=== PATIENT | male | born 1980 | race African-American/Black ===

== ENCOUNTER 2018-10-11 19:34 | Inpatient (IN) ==
[2018-10-11 21:10] LABS: Basophils % 0.2 % (0.0-0.8); Eosinophils % 0.1 % (0.00-10.9); Hematocrit 29.5 VOL% (42.0-52.0); Hemoglobin 9.2 GM/DL (14.0-18.0); Immature Granulocytes % 0.6 %; Lymphocytes % 11.2 % (21.2-54.2); Mean Corpuscular HGB Conc 31.2 GM/DL (32-36); Mean Corpuscular Hemoglobin 29 PG (27-34); Mean Corpuscular Volume 92.8 FL (87-102); Mean Platelet Volume 8.9 FL (9.6-12.0); Monocytes # 1.6 10*3/uL (0.11-0.8); Monocytes % 8.7 % (1.7-12.7); Neutrophils # 14.1 10*3/uL (1.4-7.4); Neutrophils % 79.2 % (38.7-73.9); Platelet Count 515 T/CUMM (130-400); Red Blood Count 3.18 MC/CUMM (3.8-5.5); Red Cell Distribution Width 15.3 % (9.3-17.3); White Blood Count 17.8 T/CUMM (4-12)
[2018-10-11 21:32] LABS: Alanine Aminotransferase 18 U/L (16-61); Albumin 2.6 G/DL (3.4-5.0); Alkaline Phosphatase 53 U/L (45-117); Aspartate Amino Transferase 7 U/L (0-37); Bilirubin,Total < 0.39 MG/DL (0.2-1.0); Blood Urea Nitrogen 14 MG/DL (7-18); Calcium 9.2 MG/DL (8.5-10.1); Glucose 109 MG/DL (74-106); Osmolality,Calculated 274.8 MOS/KG (273-304); Potassium 3.9 MMOL/L (3.5-5.1); Sodium 137 MMOL/L (136-145); Total Protein 8.5 G/DL (6.4-8.3); Troponin I < 0.015 NG/ML (0.00-0.045)
[2018-10-11] MEDS ORDERED: LEVOFLOXACIN INJ 500 MG in PREMIX 1 EACH IV STA (21:36)
[2018-10-11] MEDS ORDERED: SODIUM CHLORIDE 0.9% 1,000 ML IV STA (21:47)
[2018-10-11] MEDS ORDERED: ONDANSETRON 4 MG/2 ML VIAL IV PRN (22:07)
[2018-10-11] MEDS ORDERED: ALBUTEROL/IPRATROPIUM 3 ML NEB RESP TX STA (23:54)
[2018-10-12] MEDS: cefTRIAXone 1,000 MG in SYRINGE 1 EACH IV SCH ×2 (00:33→22:32)
[2018-10-12] MEDS: AZITHROMYCIN INJ 500 MG in SODIUM CHLORIDE 0.9% 250 ML IV SCH ×2 (00:33→22:58)
[2018-10-12 01:25] LABS: Basophils % 0.1 % (0.0-0.8); Hematocrit 25.5 VOL% (42.0-52.0); Hemoglobin 7.8 GM/DL (14.0-18.0); Immature Granulocytes % 0.5 %; Immature Granulocytes Absolute 0.09 #; Lymphocytes # 2.1 10*3/uL (1.4-4.0); Lymphocytes % 11.8 % (21.2-54.2); Mean Corpuscular HGB Conc 30.6 GM/DL (32-36); Mean Corpuscular Hemoglobin 28 PG (27-34); Mean Corpuscular Volume 92.7 FL (87-102); Mean Platelet Volume 9.5 FL (9.6-12.0); Monocytes # 1.4 10*3/uL (0.11-0.8); Monocytes % 8.1 % (1.7-12.7); Neutrophils # 14.1 10*3/uL (1.4-7.4); Neutrophils % 79.5 % (38.7-73.9); Platelet Count 450 T/CUMM (130-400); Red Blood Count 2.75 MC/CUMM (3.8-5.5); Red Cell Distribution Width 15.3 % (9.3-17.3); White Blood Count 17.7 T/CUMM (4-12)
[2018-10-12 01:55] LABS: Albumin 2.4 G/DL (3.4-5.0); Bilirubin,Total 0.8 MG/DL (0.2-1.0); Calcium 8.5 MG/DL (8.5-10.1); Osmolality,Calculated 277.5 MOS/KG (273-304); Potassium 3.8 MMOL/L (3.5-5.1); Total Protein 7.4 G/DL (6.4-8.3)
[2018-10-12] MEDS: BENZTROPINE 0.5 MG TABLET PO SCH ×2 (08:45→22:19)
[2018-10-12] MEDS: PANTOPRAZOLE 40 MG TABLET PO SCH (08:45)
[2018-10-12] MEDS: ENOXAPARIN 40 MG/0.4 ML SYRINGE SUBCUT SCH (08:45)
[2018-10-12] MEDS: amLODIPine 5 MG TABLET PO SCH (08:45)
[2018-10-12] MEDS ORDERED: risperiDONE 1 MG TABLET PO SCH (09:00)
[2018-10-12] MEDS ORDERED: CLOZAPINE 200 MG PO SCH (09:00)
[2018-10-12] MEDS: TIMOLOL 0.5% OPH SOLN 5 ML BOTTLE BOTH EYES SCH ×2 (10:30→22:19)
[2018-10-12] MEDS ORDERED: ONDANSETRON ODT 4 MG TABLET PO ONE (14:45)
[2018-10-12] MEDS: ACETAMINOPHEN 325 MG TABLET PO PRN (22:19)
[2018-10-12] MEDS: DIVALPROEX ER 500 MG TABLET PO SCH (22:19)
[2018-10-13 04:28] LABS: Basophils % 0.2 % (0.0-0.8); Eosinophils # 0.1 10*3/uL (0.0-0.87); Eosinophils % 0.4 % (0.00-10.9); Hematocrit 27.1 VOL% (42.0-52.0); Hemoglobin 8.2 GM/DL (14.0-18.0); Immature Granulocytes % 0.6 %; Immature Granulocytes Absolute 0.07 #; Lymphocytes # 3.1 10*3/uL (1.4-4.0); Lymphocytes % 25.2 % (21.2-54.2); Mean Corpuscular HGB Conc 30.3 GM/DL (32-36); Mean Corpuscular Hemoglobin 28 PG (27-34); Mean Corpuscular Volume 93.8 FL (87-102); Mean Platelet Volume 9.5 FL (9.6-12.0); Monocytes # 0.8 10*3/uL (0.11-0.8); Monocytes % 6.8 % (1.7-12.7); Neutrophils # 8.3 10*3/uL (1.4-7.4); Neutrophils % 66.8 % (38.7-73.9); Platelet Count 537 T/CUMM (130-400); Red Blood Count 2.89 MC/CUMM (3.8-5.5); Red Cell Distribution Width 15.3 % (9.3-17.3); White Blood Count 12.3 T/CUMM (4-12)
[2018-10-13 04:56] LABS: Albumin 2.3 G/DL (3.4-5.0); Bilirubin,Total 0.6 MG/DL (0.2-1.0); Osmolality,Calculated 279.3 MOS/KG (273-304); Potassium 4.1 MMOL/L (3.5-5.1); Total Protein 7.5 G/DL (6.4-8.3)
[2018-10-13 04:58] LABS: % Iron Saturation 15.9 % (18-50); Ferritin 706.4 ng/ml (26-388)
[2018-10-13 05:07] LABS: Folate 5.1 NG/ML (5.4-24.0)
[2018-10-13 08:15] LABS: Hypochromasia 1+; Lymphocytes 27 % (20-55); Segmented Neutrophils 67 % (50-85); Total Cells Counted 100
[2018-10-13 08:16] LABS: Microcytosis Slight; Platelet Estimate Increased
[2018-10-13] MEDS: BREXPIPRAZOLE 4 MG PO SCH (08:20)
[2018-10-13] MEDS: BENZTROPINE 0.5 MG TABLET PO SCH ×2 (08:20→21:10)
[2018-10-13] MEDS: amLODIPine 5 MG TABLET PO SCH (08:20)
[2018-10-13] MEDS: PANTOPRAZOLE 40 MG TABLET PO SCH (08:20)
[2018-10-13] MEDS: risperiDONE 1 MG TABLET PO SCH ×2 (08:20→21:10)
[2018-10-13] MEDS: TIMOLOL 0.5% OPH SOLN 5 ML BOTTLE BOTH EYES SCH ×2 (08:22→21:10)
[2018-10-13] MEDS ORDERED: FERROUS SULFATE 325 MG TABLET PO SCH (09:00)
[2018-10-13] MEDS: ENOXAPARIN 40 MG/0.4 ML SYRINGE SUBCUT SCH (09:50)
[2018-10-13 16:19] LABS: Apearance,Urine CLEAR (Clear); Bacteria,Urine Occasional /HPF (Few); Bilirubin,Urine Negative (Negative); Blood, Urine Negative (Negative); Glucose,Urine (UA) Negative (Negative); Ketones,Urine Negative (Negative); Nitrite,Urine Negative (Negative); Protein,Urine Negative; RBC,Urine <1 /HPF (0-4); Urine Color Straw (Yellow); Urine Specific Gravity 1.004 (1.001-1.035); Urine Urobilinogen < 2.0 EU/DL (0.2-1.0); WBC,Urine 1 /HPF (0-6)
[2018-10-13] MEDS: FOLIC ACID 1 MG TABLET PO SCH (21:10)
[2018-10-13] MEDS: ACETAMINOPHEN 325 MG TABLET PO PRN (21:10)
[2018-10-13] MEDS: DIVALPROEX ER 500 MG TABLET PO SCH (21:10)
[2018-10-13] MEDS: cefTRIAXone 1,000 MG in SYRINGE 1 EACH IV SCH (22:53)
[2018-10-13] MEDS: AZITHROMYCIN INJ 500 MG in SODIUM CHLORIDE 0.9% 250 ML IV SCH (22:53)
[2018-10-14] MEDS: amLODIPine 5 MG TABLET PO SCH (09:27)
[2018-10-14] MEDS: risperiDONE 1 MG TABLET PO SCH ×2 (09:27→21:28)
[2018-10-14] MEDS: PANTOPRAZOLE 40 MG TABLET PO SCH (09:27)
[2018-10-14] MEDS: TIMOLOL 0.5% OPH SOLN 5 ML BOTTLE BOTH EYES SCH ×3 (09:27→21:32)
[2018-10-14] MEDS: BENZTROPINE 0.5 MG TABLET PO SCH ×2 (09:27→21:28)
[2018-10-14] MEDS: BREXPIPRAZOLE 4 MG PO SCH (09:28)
[2018-10-14] MEDS: ENOXAPARIN 40 MG/0.4 ML SYRINGE SUBCUT SCH (09:30)
[2018-10-14 10:48] LABS: Lymphocytes,Pleural Fluid 36 %; Monocytes,Pleural Fluid 5 %; Neutrophils,Pleural Fluid 59 %; RBC,Pleural Fluid 422 T/CUMM
[2018-10-14] MEDS: FERROUS SULFATE 325 MG TABLET PO SCH ×2 (15:03→21:28)
[2018-10-14] MEDS: DIVALPROEX ER 500 MG TABLET PO SCH (21:27)
[2018-10-14] MEDS: FOLIC ACID 1 MG TABLET PO SCH (21:28)
[2018-10-14] MEDS: AZITHROMYCIN INJ 500 MG in SODIUM CHLORIDE 0.9% 250 ML IV SCH (22:27)
[2018-10-14] MEDS: cefTRIAXone 1,000 MG in SYRINGE 1 EACH IV SCH (22:32)
[2018-10-15 05:17] LABS: Basophils % 0.3 % (0.0-0.8); Eosinophils # 0.1 10*3/uL (0.0-0.87); Eosinophils % 0.7 % (0.00-10.9); Hematocrit 25.8 VOL% (42.0-52.0); Hemoglobin 7.7 GM/DL (14.0-18.0); Immature Granulocytes % 0.5 %; Immature Granulocytes Absolute 0.05 #; Lymphocytes # 2.8 10*3/uL (1.4-4.0); Lymphocytes % 26.5 % (21.2-54.2); Mean Corpuscular HGB Conc 29.8 GM/DL (32-36); Mean Corpuscular Hemoglobin 28 PG (27-34); Mean Corpuscular Volume 93.8 FL (87-102); Mean Platelet Volume 9.1 FL (9.6-12.0); Monocytes # 0.6 10*3/uL (0.11-0.8); Monocytes % 5.6 % (1.7-12.7); Neutrophils % 66.4 % (38.7-73.9); Platelet Count 514 T/CUMM (130-400); Red Blood Count 2.75 MC/CUMM (3.8-5.5); Red Cell Distribution Width 15.3 % (9.3-17.3); White Blood Count 10.5 T/CUMM (4-12)
[2018-10-15 05:46] LABS: Calcium 9.1 MG/DL (8.5-10.1); Osmolality,Calculated 282.1 MOS/KG (273-304); Potassium 4.2 MMOL/L (3.5-5.1)
[2018-10-15] MEDS: risperiDONE 1 MG TABLET PO SCH ×2 (09:40→21:13)
[2018-10-15] MEDS: PANTOPRAZOLE 40 MG TABLET PO SCH (09:40)
[2018-10-15] MEDS: BENZTROPINE 0.5 MG TABLET PO SCH ×2 (09:40→21:14)
[2018-10-15] MEDS: BREXPIPRAZOLE 4 MG PO SCH (09:40)
[2018-10-15] MEDS: FERROUS SULFATE 325 MG TABLET PO SCH ×2 (09:40→21:13)
[2018-10-15] MEDS: TIMOLOL 0.5% OPH SOLN 5 ML BOTTLE BOTH EYES SCH ×2 (09:40→21:15)
[2018-10-15] MEDS: amLODIPine 5 MG TABLET PO SCH (09:40)
[2018-10-15] MEDS: ENOXAPARIN 40 MG/0.4 ML SYRINGE SUBCUT SCH (09:41)
[2018-10-15] MEDS: NICOTINE 21 MG/24 HR PATCH TRANSDERM SCH (11:21)
[2018-10-15] MEDS: AZITHROMYCIN 250 MG TABLET PO SCH (21:13)
[2018-10-15] MEDS: DIVALPROEX ER 500 MG TABLET PO SCH (21:13)
[2018-10-15] MEDS: FOLIC ACID 1 MG TABLET PO SCH (21:13)
[2018-10-15] MEDS: cefTRIAXone 1,000 MG in SYRINGE 1 EACH IV SCH (22:43)
[2018-10-16 04:34] LABS: Basophils % 0.2 % (0.0-0.8); Eosinophils # 0.1 10*3/uL (0.0-0.87); Eosinophils % 0.5 % (0.00-10.9); Hematocrit 33.1 VOL% (42.0-52.0); Immature Granulocytes % 0.5 %; Immature Granulocytes Absolute 0.07 #; Lymphocytes # 2.9 10*3/uL (1.4-4.0); Lymphocytes % 20.7 % (21.2-54.2); Mean Corpuscular HGB Conc 29.9 GM/DL (32-36); Mean Corpuscular Hemoglobin 28 PG (27-34); Mean Corpuscular Volume 94.6 FL (87-102); Mean Platelet Volume 8.7 FL (9.6-12.0); Monocytes # 0.7 10*3/uL (0.11-0.8); Monocytes % 5.2 % (1.7-12.7); Neutrophils # 10.3 10*3/uL (1.4-7.4); Neutrophils % 72.9 % (38.7-73.9); Platelet Count 609 T/CUMM (130-400); Red Cell Distribution Width 15.5 % (9.3-17.3)
[2018-10-16 04:50] LABS: White Blood Count 14.1 T/CUMM (4-12)
[2018-10-16 04:51] LABS: Hemoglobin 9.9 GM/DL (14.0-18.0)
[2018-10-16] MEDS: risperiDONE 1 MG TABLET PO SCH ×2 (08:18→21:18)
[2018-10-16] MEDS: amLODIPine 5 MG TABLET PO SCH (08:18)
[2018-10-16] MEDS: BENZTROPINE 0.5 MG TABLET PO SCH ×2 (08:18→21:18)
[2018-10-16] MEDS: PANTOPRAZOLE 40 MG TABLET PO SCH (08:18)
[2018-10-16] MEDS: FERROUS SULFATE 325 MG TABLET PO SCH ×2 (08:18→21:18)
[2018-10-16] MEDS: BREXPIPRAZOLE 4 MG PO SCH (08:18)
[2018-10-16] MEDS: ENOXAPARIN 40 MG/0.4 ML SYRINGE SUBCUT SCH (08:18)
[2018-10-16] MEDS: TIMOLOL 0.5% OPH SOLN 5 ML BOTTLE BOTH EYES SCH ×2 (08:18→21:19)
[2018-10-16] MEDS: NICOTINE 21 MG/24 HR PATCH TRANSDERM SCH (08:19)
[2018-10-16] MEDS ORDERED: HydrOXYzine PAMOATE 25 MG CAPSULE PO PRN (10:38)
[2018-10-16] MEDS ORDERED: diphenhydrAMINE CAP 50 MG CAPSULE PO PRN (10:39)
[2018-10-16] MEDS ORDERED: diphenhydrAMINE CAP 25 MG CAPSULE PO PRN (10:39)
[2018-10-16] MEDS ORDERED: MELATONIN 3 MG TABLET PO PRN (10:39)
[2018-10-16] MEDS: DIVALPROEX ER 500 MG TABLET PO SCH (21:18)
[2018-10-16] MEDS: FOLIC ACID 1 MG TABLET PO SCH (21:18)
[2018-10-16] MEDS: AZITHROMYCIN 250 MG TABLET PO SCH (21:18)
[2018-10-17] MEDS: cefTRIAXone 1,000 MG in SYRINGE 1 EACH IV SCH (00:05)
[2018-10-17] MEDS: NICOTINE 21 MG/24 HR PATCH TRANSDERM SCH (08:46)
[2018-10-17] MEDS: risperiDONE 1 MG TABLET PO SCH (08:47)
[2018-10-17] MEDS: BREXPIPRAZOLE 4 MG PO SCH (08:47)
[2018-10-17] MEDS: FERROUS SULFATE 325 MG TABLET PO SCH (08:47)
[2018-10-17] MEDS: PANTOPRAZOLE 40 MG TABLET PO SCH (08:47)
[2018-10-17] MEDS: BENZTROPINE 0.5 MG TABLET PO SCH (08:47)
[2018-10-17] MEDS: amLODIPine 5 MG TABLET PO SCH (08:51)
[2018-10-17 09:58] VITALS: BP 102/58
[2018-10-17] MEDS: ENOXAPARIN 40 MG/0.4 ML SYRINGE SUBCUT SCH (09:59)
== END 2018-10-17 11:41 | disposition home health service (06) | DRG 139 ==
LOC: N.EDINP 19:34 → N.ED 19:34 → SUATTDRO 22:07 → N.5E 22:42
PROVIDERS: ADMIT Internal Medicine Geriatric Medicine; ATTEND Internal Medicine